=== PATIENT | male | born 1970 | race Caucasian/White ===

== ENCOUNTER → 2019-09-18 11:45 | Outpatient (CLI) | payer OTHER, SELFPAY ==
--- NOTE | ~2019-09-18 | XR_ITS ---
XR chest 2V DATE: 09/18/2019 12:07 INDICATION: Edema TECHNIQUE: PA and lateral views COMPARISON: None FINDINGS: Cardiomegaly. There is pulmonary vascular redistribution which may indicate mild pulmonary venous hypertension. The fissures are mildly prominent which may indicate mild subpleural edema. No pulmonary infiltrate or consolidation, pleural effusion or pneumothorax. No hilar or mediastinal e nlargement is evident. IMPRESSION: Cardiomegaly and mild congestive changes Reviewed, dictated and finalized at location B.
== END ==
PROVIDERS: PCP Family Medicine; Visit Provider Family Medicine
DX: R60.9 Edema, unspecified (principal); I51.7 Cardiomegaly
CPT/HCPCS: 71046

== ENCOUNTER 2019-09-28 16:00 | Outpatient (CLI) | payer OTHER, SELFPAY ==
--- NOTE | ~2019-09-28 | US_ITS ---
EXAMINATION: US venous doppler [facility] DATE: 09/28/2019 16:42 INDICATION: Lower limb edema. TECHNIQUE: Grayscale ultrasound images without and with compression and Doppler ultrasound images of the bilateral lower extremity veins were obtained. COMPARISON: None. FINDINGS: The visualized portions of right common femoral vein, profunda (deep) femoral vein, femoral vein, pop liteal vein, peroneal veins, posterior tibial veins, and greater saphenous vein outflow are patent. The visualized portions of left common femoral vein, profunda femoral vein, femoral vein, popliteal v ein, peroneal veins, posterior tibial veins, and greater saphenous vein outflow are patent. IMPRESSION: 1. No deep venous thrombosis. Reviewed, dictated and finalized at location A.
== END 2019-09-28 16:01 | disposition home or self-care (01) ==
LOC: ANHIMG 16:07
PROVIDERS: PCP Family Medicine; Visit Provider Family Medicine
DX: R60.9 Edema, unspecified (principal)
CPT/HCPCS: 93970

== ENCOUNTER 2023-07-29 12:44 | Outpatient (CLI) | payer OTHER, SELFPAY | END 2023-07-29 12:45 | disposition home or self-care (01) | LOC: ANHLAB 12:45 | PROVIDERS: PCP Family Medicine; Visit Provider Nurse Practitioner Family | DX: R14.0 Abdominal distension (gaseous) (principal); R10.9 Unspecified abdominal pain; Z86.19 Personal history of other infectious and parasitic diseases | CPT/HCPCS: 87338 ==